=== PATIENT | female | born 1995 | race Caucasian/White ===

== ENCOUNTER 2019-02-19 22:49 | Emergency (ER) | payer OTHER ==
[2019-02-19 22:54] VITALS: BP 106/62
--- NOTE | 2019-02-19 23:58 | EDPHY ---
General Time Seen by Provider: 02/19/19 23:30 Narrative: CLINICAL IMPRESSION: Scalp laceration ASSESSMENT/PLAN: Patient is a 23-year-old female with no significant medical history who presents to the emergency department complaining of a scalp laceration that she sustained just prior to arrival after hitting her head on a cabinet in the kitchen. Patient is well-appearing, no acute distress. Physical examination reveals 1.5 cm superficial laceration to the right crown. There is no evidence of deep structure involvement, vascular compromise, foreign body, or bony involvement. The wound was not contaminated, tetanus status was up-to-date. Mechanism is very low, I do not suspect skull fracture, TBI or ICH. The wound was irrigated and then repaired as discussed in the procedure note, the patient tolerated this well. Wound care instructions discussed with patient, she will return to the emergency department in 7 days for staple removal. Return precautions discussed- she will return for increased pain, signs of infection, fever, vomiting, if the wound opens or for any other concerns. Patient and family member both verbalize understanding and are in agreement with plan. DIFFERENTIAL DIAGNOSIS: includes but not limited to laceration of tendon or vascular structure, underlying fracture, laceration with retained FB ED PROCEDURES: Laceration Repair Verbal consent obtained by patient. Risks discussed, including but not limited to infection, pain, retained foreign body, need for additional repair, poor cosmetic result, tendon damage, nerve damage, poor wound healing, vascular damage. Alternatives to repair discussed. [place] protocol used to establish correct patient, procedure, equipment, arch support technician, and site. Anesthesia obtained by local infiltration. Anesthetized with 1% lidocaine with epinephrine. Laceration location right crown scalp, length 1.5 cm, depth 3 mm, Repair type simple. Patient was prepped and draped in usual sterile fashion. Hemostasis achieved with direct pressure. Wound explored through full range of motion and entire depth of wound probed and visualized with gloved finger. No suspicion for underlying fracture, vascular damage, foreign body, or contamination. Area was cleansed with [place] and irrigated with sterile saline as per protocol. No foreign body or material removed. Repair method simple, estefania. Three estefania placed. Well aligned, closely approximated. wound was dressed with antibiotic ointment. Patient tolerated well with no immediate complications. Wound care: Clean and dry x 24 hours, gently clean with soap and water, cover with topical antibiotic ointment/bandage. Suture/Staple removal: 5-7 Days CHIEF COMPLAINT: Laceration HPI: Patient is a 23-year-old female who presents to the emergency department complaining of a scalp laceration that she sustained prior to arrival after hitting her head on a kitchen cabinet. Patient turned quickly in her kitchen, accidentally hit her head on the edge of a cabinet. She immediately noticed a small amount of blood, was able to get the bleeding under control. She did not lose consciousness, she denies any headache or dizziness. Patient is up-to- date on her tetanus status. She denies any other injury or complaint. PAST MEDICAL HISTORY: None Pertinent Past Surgical History: Denies Social History: Never smoker, denies illicit drug use REVIEW OF SYSTEMS: All other systems negative Constitutional: No fever, no chills Musculoskeletal: No deformity, no joint pain Skin: Scalp laceration Neurological: No sensory loss or weakness. PHYSICAL EXAM: General Appearance: Alert, oriented, appropriate for age, cooperative, NAD, well hydrated, non-toxic appearing, VSS, no hypoxia. Neurological: Alert and oriented x 3. Neurological exam is grossly normal with no focal deficit. Normal gait. Skin: There is a 1.5 cm superficial laceration to the right crown of her scalp. There is no underlying hematoma, no crepitus. HENT: Normocephalic. External ears are normal, TMs normal without evidence of hemotympanum. There is no Steele sign or raccoon eyes. Nares are clear, mucosa is pink. Oropharynx is clear. Neck: There is no midline cervical spinal tenderness to palpation, no step-off or deformity. Full range of motion. Upper Extremities: Intact distal pulses, Full range of motion intact, no tenderness, no ecchymosis or edema Lower Extremities: Intact distal pulses, No edema, No tenderness, No cyanosis, full range of motion intact, No calf tenderness bilaterally. MEDICAL DECISION MAKING: Patient was seen independently. Secondary supervising physician at time of evaluation was Dr. Herbert, he did not evaluate this patient. Diagnosis: Scalp laceration. New, requires workup Summary: See assessment and plan for summary of ED visit Clinical lab tests: Not applicable. Independent visualization of images, tracing, or specimens not applicable. Decision to obtain medical records or history from someone other than the patient: No Review / Summarize previous medical records: Yes Disposition: Stable, discharged home. - History Smoking Status: Never smoked - Objective Vital Signs: Initial Vital Signs Temperature (C) 36.7 C 02/19/19 22:51 Heart Rate 60 02/19/19 22:51 Respiratory Rate 16 02/19/19 22:51 Blood Pressure 106/62 02/19/19 22:51 O2 Sat (%) 94 02/19/19 22:51 O2 Delivery Mode Room Air Allergies/Adverse Reactions: No Known Allergies Allergy (Unverified 02/19/19 22:50) Home Medications: Medication Instructions Recorded Lansoprazole [PREVACID 30mg/10ml 02/19/19 susp (Adult) (*)] Departure - Departure Disposition: Home, Routine, Self-Care Clinical Impression: Scalp laceration Qualifiers: Encounter type: initial encounter Qualified Code(s): S01.01XA - Laceration without foreign body of scalp, initial encounter Condition: Good Instructions: Laceration (ED) Additional Instructions: DISCHARGE INSTRUCTIONS FROM YOUR DOCTOR Thank you for visiting our emergency department today. Please keep in mind that discharge from the emergency department does not mean that there is nothing wrong - it simply means that we have not identified an emergency condition that requires further evaluation or treatment in the hospital. You should always plan to follow up with primary care for re-evaluation of your condition in the next 2-3 days. Keep wound clean and dry for 24 hours. Clean at least twice daily with regular soap and water, apply antibiotic ointment and dressing. Do not soak the wound while the estefania are in place. Anticipate staple removal in 5-7 days. For pain control: You may take Tylenol, I recommend 500-1000 mg every 6-8 hours as needed. Take with food and a full glass of water. Stop taking if this is upsetting her stomach. Do not exceed 4000 mg in a 24 hr period. You may also take ibuprofen, recommend 400 mg every 6 hr. Take with food and a full glass of water. Stop taking if this upsets her stomach. Do not exceed 2400 mg in a 24 hr period. Return for signs of wound infection ie: redness, swelling, drainage, foul odor, red streaks, fever, chills, pain, bleeding, if the stitches pop, if the wound opens or for any other new, worsening or worrisome symptoms. People present with illnesses and injuries in different ways, and it is always possible that we have missed something. You may always return for re-evaluation if symptoms worsen or if they are not improving or if you develop new/different symptoms. Again, thank you for choosing our emergency department. We hope that you feel better. Referrals: Kami Raines MD [Medical Doctor] - As per Instructions (Please establish care with a primary care provider if you have not done so already.) ED,PHYSICIAN [facility] [Medical Doctor] - As per Instructions (Return in 5-7 days for staple removal)
== END 2019-02-20 00:12 | disposition home or self-care (01) ==
PROC: 0HQ0XZZ Repair Scalp Skin, External Approach (ICD-10-PCS; principal; 2019-02-19)
DX: S01.01XA Laceration without foreign body of scalp, initial encounter (principal); W22.8XXA Striking against or struck by other objects, initial encounter; Y92.000 Kitchen of unspecified non-institutional (private) residence as the place of occurrence of the external cause; Y99.9 Unspecified external cause status